=== PATIENT | male | born 1960 | race Asian ===

== ENCOUNTER 2020-07-09 17:49 | Observation (INO) | payer OTHER ==
[~2020-07-09] VITALS: Ht 167.6 cm; Wt 86.4 kg
[2020-07-09] MEDS ORDERED: FAMOTIDINE 20 MG/2 ML VIAL IVP ONE (18:15)
[2020-07-09] MEDS ORDERED: IV NORMAL SALINE 1,000ML 1,000 ML IV ONE ×2 (18:15→21:15)
[2020-07-09] MEDS ORDERED: ONDANSETRON PF 4 MG/2 ML VIAL. IVP ONE (18:15)
[2020-07-09] MEDS ORDERED: MECLIZINE 12.5 MG TABLET. PO ONE (18:15)
--- NOTE | 2020-07-09 18:21 | EKG ---
[address] [address] Test Date: 2020-07-09 Test Time: 18:16:09 Pat Name: BARRERA FISH Department: Room: Gender: M Proposal Editor: ROBI : 1960 Requested By: PRIYA COY Order Number: [id number] Reading MD: Measurements Intervals [place] Rate: 62 P: 52 WA: 204 QRS: 26 QRSD: 106 T: 18 QT: 444 QTc: 453 Interpretive Statements SINUS RHYTHM NORMAL ECG RI6.02 No previous ECG available for comparison
--- NOTE | 2020-07-09 18:50 | RAD ---
Exam: CT head INDICATION: Dizziness TECHNIQUE: Sequential axial images through the head were obtained without the administration of IV co ntrast. Comparisons: None FINDINGS: No focal parenchymal lesion or hemorrhage is identified. There is no midline shift or sulcal effaceme nt. No acute vascular territory infarction is identified. Castaneda-white distinction is preserved. The ventricular system is within normal limits without compression hydrocephalus. The basal cisterns are well maintained. The visualized portions of the paranasal sinuses and mastoid air cells are well-pneumatized. No acute fractures. IMPRESSION: No acute intracranial abnormality. Exposure: One or more of the following in the visualized dose reduction techniques were utilized for this examination: 1. Automated exposure control 2. Adjustment of the MA and/or KV according to patient size Use of iterative of reconstructive technique Electronically signed by: Royer Ferguson MD (07/09/2020 6:47 PM) [facility]
[2020-07-09 19:00] LABS: CALCIUM 9.4 mg/dL (8.5-10.1); CREATININE 1.1 mg/dL (0.7-1.3); GFR 68.3; POTASSIUM 4.1 mmol/L (3.5-5.1)
--- NOTE | 2020-07-09 19:15 | RAD ---
Study: XR CHEST 1V Indication: Dizziness. Comparison: None. Findings: Within normal limits cardiomediastinal silhouette and samuel given AP technique and low lung volumes. Asymmetric elevation of the right hemidiaphragm with mild overlying volume loss. No confluent airspac e infiltrate, layering effusion or pneumothorax. Impression: No acute radiographic abnormality of the chest. Electronically signed by: ADRIENNE HUMPHRIES MD (07/09/2020 7:12 PM) [facility]
[2020-07-09 19:17] LABS: ALBUMIN/GLOBULIN RATIO 1.3 (1.0-1.7); TOTAL BILIRUBIN 0.6 mg/dL (0.2-1.0); TOTAL PROTEIN 7.2 g/dL (6.4-8.2)
[2020-07-09 19:23] LABS: BASO % 0 % (0-3); EOS # 0.1 x10^3/uL (0.0-0.7); EOS % 1 % (0-3); HEMATOCRIT 40.6 % (39.0-53.0); HEMOGLOBIN 12.4 g/dL (13.0-17.5); LYMPH # 0.9 x10^3/uL (1.0-4.8); LYMPH % 8 % (24-48); MEAN CORPUSCULAR HEMOGLOBIN 20 pg (25-35); MEAN CORPUSCULAR HGB CONC 31 g/dL (31-37); MEAN CORPUSCULAR VOLUME 64 fL (79-100); MONO # 0.3 x10^3/uL (0.0-1.1); MONO % 3 % (0-9); NEUT # 9.8 x10^3uL (1.8-7.7); NEUT % 88 % (31-73); PLATELET COUNT 212 x10^3/uL (140-400); RED BLOOD COUNT 6.32 x10^6/uL (4.30-5.70); WHITE BLOOD COUNT 11.2 x10^3/uL (4.0-11.0)
--- NOTE | 2020-07-09 19:30 | PHYS DOC ---
Past History Past Medical History: Hypertension Past Surgical History: No Surgical History Alcohol Use: None Adult General Chief Complaint Chief Complaint: DIZZY/LIGHT HEADED HPI HPI Patient is a 59-year-old male patient presented to the ED today complaining of a presyncope episode. Patient states today he had an episode where he felt like he was going to pass out with nausea and vomiting. He is not able to describe it well. He states he had a similar episode on Monday that lasted almost 4 hours. Denies any headache. Denies any chest pain or shortness of breath. Review of Systems Review of Systems Constitutional: Denies fever or chills [] Eyes: Denies change in visual acuity, redness, or eye pain [] HENT: Denies nasal congestion or sore throat [] Respiratory: Denies cough or shortness of breath [] Cardiovascular: No additional information not addressed in HPI [] GI: Denies abdominal pain, nausea, vomiting, bloody stools or diarrhea [] : Denies dysuria or hematuria [] Musculoskeletal: Denies back pain or joint pain [] Integument: Denies rash or skin lesions [] Neurologic: Reports presyncope. Denies headache, focal weakness or sensory changes [] All other systems were reviewed and found to be within normal limits, except as documented in this note. Current Medications Current Medications Current Medications Medications (Trade) Dose Ordered Sig/Ethel Start Time Stop Time Status Last Admin Dose Admin Famotidine (Pepcid Vial) 20 mg 1X ONCE 07/09/20 18:15 07/09/20 18:42 DC 07/09/20 18:48 20 MG Meclizine HCl (Antivert) 12.5 mg 1X ONCE 07/09/20 18:15 07/09/20 18:42 DC 07/09/20 18:49 12.5 MG Ondansetron HCl (Zofran) 4 mg 1X ONCE 07/09/20 18:15 07/09/20 18:42 DC 07/09/20 18:49 4 MG Sodium Chloride 1,000 ml @ 1,000 mls/hr 1X ONCE 07/09/20 18:15 07/09/20 19:14 DC 07/09/20 18:50 1,000 MLS/HR Allergies Allergies Allergies Coded Allergies Type Severity Reaction Last Updated Verified No Known Drug Allergies 07/09/20 No Physical Exam Physical Exam Constitutional: Well developed, well nourished, no acute distress, non-toxic appearance. [] HENT: Normocephalic, atraumatic, bilateral external ears normal, oropharynx moist, no oral exudates, nose normal. [] Eyes: PERRLA, EOMI, conjunctiva normal, no discharge. [] Neck: Normal range of motion, no tenderness, supple, no stridor. [] Cardiovascular:Heart rate regular rhythm, no murmur [] Lungs & Thorax: Bilateral breath sounds clear to auscultation [] Abdomen: Bowel sounds normal, soft, no tenderness, no masses, no pulsatile masses. [] Skin: Warm, dry, no erythema, no rash. [] Back: No tenderness, no CVA tenderness. [] Extremities: No tenderness, no cyanosis, no clubbing, ROM intact, no edema. [] Neurologic: Alert and oriented X 3, normal motor function, normal sensory functi on, no focal deficits noted. [] Psychologic: Affect normal, judgement normal, mood normal. [] Current Patient Data Vital Signs Vital Signs Date Time Temp Pulse Resp B/P (MAP) Pulse Ox O2 Delivery O2 Flow Rate FiO2 07/09/20 18:00 98.0 65 16 132/86 (101) 97 Room Air Lab Results Laboratory Tests Test 07/09/20 18:25 Prothrombin Time 12.1 SEC (9.4-11.4) H Prothrombin Time INR 1.2 (0.9-1.1) H Activated Partial Thromboplast Time 23 SEC (23-33) Sodium Level 141 mmol/L (136-145) Potassium Level 4.1 mmol/L (3.5-5.1) Chloride Level 104 mmol/L (98-107) Carbon Dioxide Level 28 mmol/L (21-32) Anion Gap 9 (6-14) Blood Urea Nitrogen 19 mg/dL (8-26) Creatinine 1.1 mg/dL (0.7-1.3) Estimated GFR (Cockcroft-Gault) 68.3 BUN/Creatinine Ratio 17 (6-20) Glucose Level 143 mg/dL (70-99) H Calcium Level 9.4 mg/dL (8.5-10.1) Magnesium Level 2.0 mg/dL (1.8-2.4) Total Bilirubin 0.6 mg/dL (0.2-1.0) Aspartate Amino Transferase (AST) 23 U/L (15-37) Alanine Aminotransferase (ALT) 51 U/L (16-63) Alkaline Phosphatase 55 U/L (46-116) Creatine Kinase 100 U/L (39-308) Creatine Kinase MB (Mass) 1.3 ng/mL (0.0-3.6) Creatine Kinase MB Relative Index 1.3 % (0-4) Troponin I Quantitative < 0.017 ng/mL (0-0.055) AF-Ady-B-Type Natriuretic Peptide 18 pg/mL (0-124) Total Protein 7.2 g/dL (6.4-8.2) Albumin 4.0 g/dL (3.4-5.0) Albumin/Globulin Ratio 1.3 (1.0-1.7) Lipase 76 U/L (73-393) EKG EKG [address] Fletcher sinus rhythm HR 62 no STEMI[] Radiology/Procedures Radiology/Procedures []REASON: dizziness PROCEDURE: CT HEAD WO CONTRAST Exam: CT head INDICATION: Dizziness TECHNIQUE: Sequential axial images through the head were obtained without the administration of IV contrast. Comparisons: None FINDINGS: No focal parenchymal lesion or hemorrhage is identified. There is no midline shift or sulcal effacement. No acute vascular territory infarction is identified. Castaneda-white distinction is preserved. The ventricular system is within normal limits without compression hydrocephalus. The basal cisterns are well maintained. The visualized portions of the paranasal sinuses and mastoid air cells are well- pneumatized. No acute fractures. IMPRESSION: No acute intracranial abnormality. Exposure: One or more of the following in the visualized dose reduction techniques were utilized for this examination: 1. Automated exposure control 2. Adjustment of the MA and/or KV according to patient size Use of iterative of reconstructive technique Electronically signed by: Royer Mcclellan MD (07/09/2020 6:47 PM) [facility] DICTATED AND SIGNED BY: ROYER MCCLELLAN MD DATE: 07/09/201845 CC: ISMAEL SMITH DO; PRIYA COY OPERATIONS SCHEDULER ~MTH0 0 PROCEDURE: PORTABLE CHEST 1V Study: XR CHEST 1V Indication: Dizziness. Comparison: None. Findings: Within normal limits cardiomediastinal silhouette and samuel given AP technique and low lung volumes. Asymmetric elevation of the right hemidiaphragm with mild overlying volume loss. No confluent airspace infiltrate, layering effusion or pneumothorax. Impression: No acute radiographic abnormality of the chest. Electronically signed by: ADRIENNE HUMPHRIES MD (07/09/2020 7:12 PM) [facility] DICTATED AND SIGNED BY: ADRIENNE HUMPHRIES MD DATE: 07/09/201911 CC: ISMAEL SMITH DO; PRIYA COY OPERATIONS SCHEDULER ~MTH0 0 Heart Score Risk Factors: Risk Factors: DM, Current or recent (<one month) smoker, HTN, HLP, family history of CAD, obesity. Risk Scores: Risk Factors: DM, Current or recent (<one month) smoker, HTN, HLP, family history of CAD, obesity. Course & Med Decision Making Course & Med Decision Making Pertinent Labs and Imaging studies reviewed. (See chart for details) This is a 59-year-old male patient who presents to the ED today complaining of an episode where he felt he was going to pass out with nausea and vomiting. He states he had a similar episode on Monday as well. CBC with a WBC of 11.2, hemoglobin 12.4 with hematocrit of 40.6, patient states he is and has Beta thalassemia. CMP with no acute findings. Urine drug screen is negative. Troponin is normal, EKG is normal, CT of the head is negative, chest x-ray is negative. Spoke with Dr. Miller who accepted patient for admission Dragon Disclaimer Dragon Disclaimer This electronic medical record was generated, in whole or in part, using a voice recognition dictation system. Departure Departure: Impression: Primary Impression: Pre-syncope Additional Impressions: Nausea & vomiting Anemia Beta+ thalassaemia Disposition: ADMITTED INPT THIS HOSP Condition: STABLE Referrals: ISMAEL SMITH DO (PCP) follow up tomorrow Patient Instructions: Hemoglobin E - Beta Thalassemia Hemoglobin Variants, Nausea and Vomiting, Maiv-fm-Bxce Additional Instructions: You were evaluated in the emergency room, your CAT scan of the head and chest x- ray are negative for any acute findings, your troponin is normal. Your EKG is normal. The rest of your lab work did not have any acute findings. 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
[2020-07-09] MEDS ORDERED: ONDA4TAB12 PO (20:21)
[2020-07-09] MEDS ORDERED: MECL12.582 PO (20:21)
[2020-07-09 20:41] LABS: BARBITURATES NEG (NEG); BENZODIAZEPINES NEG (NEG); CANNABINOIDS NEG (NEG); COCAINE NEG (NEG); METHADONE NEG (NEG); OPIATES NEG (NEG); PHENCYCLIDINE NEG (NEG)
[2020-07-09 20:54] LABS: AMPHETAMINE/METHAMPHETAMINE NEG (NEG)
[2020-07-09 21:06] LABS: BILIRUBIN,URINE NEG (NEG); CLARITY,URINE CLEAR; COLOR,URINE YELLOW; GLUCOSE,URINE NEG (NEG)
[2020-07-09 21:07] LABS: BACTERIA,URINE 0 /HPF (0-FEW); NITRITE,URINE NEG (NEG); RBC,URINE 0 /HPF (0-2); UROBILINOGEN,URINE 0.2 mg/dL (0.2 mg/dL); WBC,URINE 0 /HPF (0-4)
[2020-07-09] MEDS ORDERED: ONDANSETRON PF 4 MG/2 ML VIAL. IVP PRN (21:15)
[2020-07-09] MEDS ORDERED: ACETAMINOPHEN 325 MG TABLET PO PRN (21:15)
[2020-07-09 22:35] VITALS: BP 162/90
[2020-07-09] MEDS ORDERED: ALLO100T PO (23:06)
[2020-07-09] MEDS ORDERED: LISI10TA16 PO (23:06)
[2020-07-09] MEDS ORDERED: ASPI-889 PO (23:06)
[2020-07-09] MEDS ORDERED: CETI10TA16 PO (23:06)
--- NOTE | 2020-07-10 02:36 | NUR ---
The patient, BARRERA FISH, 59 y/o, M admitted by ROLF FANG MD, was given written information regarding hospital policies, unit procedures and contact persons. Valuables were checked and vital signs noted. PT states his feeling like he is "going to pass out" happened first on Monday and again on date of admission. PT states he is "borderline diabetic"; no medications and no testing at this time. PT with N/V/D at home on date of admission, none noted at time of admission. Reviewed with PT his PMH, PSH, SH, FH and medications.
[2020-07-10 06:03] VITALS: BP 119/76
[2020-07-10 06:21] LABS: ALBUMIN 3.2 g/dL (3.4-5.0); ALBUMIN/GLOBULIN RATIO 1.1 (1.0-1.7); CALCIUM 8.7 mg/dL (8.5-10.1); CREATININE 1.1 mg/dL (0.7-1.3); GFR 68.3; TOTAL BILIRUBIN 0.6 mg/dL (0.2-1.0)
[2020-07-10 06:23] LABS: BASO % 0 % (0-3); EOS # 0.2 x10^3/uL (0.0-0.7); EOS % 3 % (0-3); HEMATOCRIT 37.9 % (39.0-53.0); HEMOGLOBIN 11.6 g/dL (13.0-17.5); LYMPH # 1.6 x10^3/uL (1.0-4.8); LYMPH % 23 % (24-48); MEAN CORPUSCULAR HEMOGLOBIN 20 pg (25-35); MEAN CORPUSCULAR HGB CONC 31 g/dL (31-37); MEAN CORPUSCULAR VOLUME 64 fL (79-100); MONO # 0.3 x10^3/uL (0.0-1.1); MONO % 5 % (0-9); NEUT # 4.6 x10^3uL (1.8-7.7); NEUT % 68 % (31-73); PLATELET COUNT 197 x10^3/uL (140-400); RED BLOOD COUNT 5.97 x10^6/uL (4.30-5.70); WHITE BLOOD COUNT 6.8 x10^3/uL (4.0-11.0)
[2020-07-10 08:08] LABS: ANISOCYTOSIS MOD; HYPOCHROMIA MOD; MICROCYTOSIS MOD; OVALOCYTES FEW; PLT ESTIMATE ADEQUATE (ADEQUATE); TEAR DROP CELLS OCC
[2020-07-10 08:10] LABS: POLYCHROMASIA SLIGHT
[2020-07-10 10:35] VITALS: BP 115/70
[2020-07-10 10:36] VITALS: BP 115/72
[2020-07-10 10:37] VITALS: BP 121/77
--- NOTE | 2020-07-10 12:40 | NUR ---
PATIENT IS DISCHARGED HOME. DISCHARGE INSTRUCTIONS REVIEWED , PATIENT VERBALIZED UNDERSTANDING. PATIENT LEFT ROOM VIA AMBULATION ACCOMP BY THIS RN. PATIENT IS TAKEN HOME BY VIA PERSONAL VEHICLE.
--- NOTE | 2020-07-10 12:58 | HP ---
ADMIT DATE: 07/10/2020 ADMISSION HISTORY AND PHYSICAL ATTENDING PHYSICIAN: Dr. Fang. CHIEF COMPLAINT: Lightheadedness. HISTORY OF PRESENT ILLNESS: The patient is a very pleasant 59-year-old gentleman presented to the ED with new episode of near syncope. He had 4 episodes of vomiting and diarrhea. He may have eaten some bad cream cheese on a bagel, unable to delineate exact detail. He did have vomiting and retching, which triggered a vasovagal episode. He did not pass out, but he became very dizzy. In the ED, he was given some IV hydration. The workup was fairly unremarkable. He had a negative CT of the head, chest x-ray was clear. CBC and chemistry panel were entirely unremarkable. The patient was admitted for observation. PAST MEDICAL HISTORY: Significant for essential hypertension. He is a nonsmoker, nondrinker. ALLERGIES: He has no drug allergies. MEDICATIONS: Current medicines were reviewed. He takes allopurinol, aspirin, Zyrtec, lisinopril 10 mg daily, meclizine p.r.n. SOCIAL HISTORY: He is a nonsmoker, nondrinker. FAMILY HISTORY: Noncontributory. REVIEW OF SYSTEMS: He has a history of beta thalassemia, but hemoglobin was at 12.6 gram. No transfusions. GI symptoms, nausea, retching and some episodes of diarrhea self-limiting. No fevers. No COVID exposure. All other systems reviewed and turned to be negative. PHYSICAL EXAMINATION: GENERAL: When I saw him, this is a pleasant, middle-aged gentleman. He appeared well-developed. INITIAL VITAL SIGNS: Showed a blood pressure of 121/77. No orthostasis. Oxygen saturation 95% on room air, pulse 60 and regular, temperature 98.6 degrees Fahrenheit. HEENT: Head is without trauma. Pupils are reactive. Sclerae nonicteric. Oropharynx clear. NECK: Supple, no bruits identified. LUNGS: Otherwise clear. CARDIOVASCULAR: Showed regular heart tones. ABDOMEN: Soft, no guarding. EXTREMITIES: Showed no cyanosis or edema. NEUROLOGIC FINDINGS: Focally intact. Speech is fluent. SKIN: Warm and dry. No focal deficits. PERTINENT LABORATORY AND X-RAY STUDIES: His hemoglobin was 12.4 g/dL with a white count of 11,200. Electrolytes all within normal range with a sodium of 141 mEq, potassium 4.1 mEq, creatinine is 1.1 mg/dL, nonfasting blood sugar 120. Cardiac enzymes are negative for coronary ischemia. Transaminases and bilirubin all within normal range. ASSESSMENT: 1. A 59-year-old gentleman with near syncopal episode. 2. Vasovagal physiologic response due to vomiting. 3. Self-limiting gastroenteritis. 4. Essential hypertension, currently normotensive. PLAN: 1. Observation status. 2. Reassurance. 3. Serial cardiac enzymes. 4. Continue home meds. ROLF FANG MD DR: ALLISON/ike JOB#: [id number] / [id number] ISMAEL Glasgow DO
--- NOTE | 2020-07-10 15:13 | DS ---
DATE OF DISCHARGE: 07/10/2020 ATTENDING PHYSICIAN: Dr. Fang. FINAL DISCHARGE DIAGNOSES: 1. Vasovagal near syncope. 2. Self-limiting gastroenteritis. 3. Essential hypertension. 4. History of beta thalassemia. HISTORY OF PRESENT ILLNESS: The patient is a very pleasant 59-year-old gentleman, otherwise healthy, admitted to the ED with dizziness, vasovagal episode, and several episodes of vomiting. He may have eaten some food that was spoiled. In any event, he was admitted for further treatment and evaluation. PHYSICAL EXAMINATION: Please see my dictated note. PERTINENT LABORATORY AND X-RAY STUDIES: Admission hemoglobin was 12.4 grams, white count 6800. Electrolytes within normal range. Creatinine 1.1 mg/dL. Three sets of cardiac enzymes negative for coronary ischemia. Nonfasting blood sugar 120. Transaminases and liver panel all within normal range. COURSE IN THE HOSPITAL: The patient did receive several IV fluids. He had a normal chest x-ray and the CT of the head he was fine. Diet was advanced. He did well. By the next hospital day, I reassured him that he had a self-limiting gastroenteritis, resulting in a vasovagal episode. Should he have any further events leading to this, I would have him contact his primary care physician to set up an event monitor, which can last anywhere from 14-28 days. He has no cardiac history. I do not think this will be necessary. Therefore, in the next hospital day after much discussion, I examined the patient. He was quite stable. His blood pressure was 121/77, pulse 62 and regular. He was afebrile, oxygen saturation 95% on room air. He had no orthostasis. Blood pressure checks, he was doing well. He is discharged home with no changes on his meds. He should continue his lisinopril 10 mg p.o. daily, aspirin 1 daily, allopurinol, and Zyrtec for seasonal allergies. There are no restrictions on his diet. I gave him the reports of his CT head, chest x-ray, lab work for him to hand carry for his primary care physician. He will follow up with Dr. Razo as scheduled. The patient was then discharged from our hospital in stable condition with explicit instructions and followup care. ROLF FANG MD DR: ALLISON/ike JOB#: [id number] / [id number] ISMAEL Glasgow DO [facility]
== END 2020-07-10 12:40 | disposition home or self-care (01) ==
LOC: ER 17:49 → 1 SOUTH 21:13
PROVIDERS: ADMIT Hospitalist; ATTEND Hospitalist
DX: R55 Syncope and collapse (principal); R11.10 Vomiting, unspecified; K52.9 Noninfective gastroenteritis and colitis, unspecified; I10 Essential (primary) hypertension; D56.1 Beta thalassemia; J30.2 Other seasonal allergic rhinitis; Z79.899 Other long term (current) drug therapy
CPT/HCPCS: 36415; 70450; 71045; 80053; 80307; 81001; 82553; 83690; 83735; 83880; 84484; 85025; 85610; 85730; 93005; 96361; 96374; 96375; 99285; G0378; J2405; J3490; J7030; G0379